=== PATIENT | male | born 1950 | race Caucasian/White ===

== ENCOUNTER → 2023-12-26 | Emergency (ER) | payer OTHER ==
[~2023-12-26] VITALS: Ht 180.3 cm; Wt 79.8 kg
[~2023-12-26] MED LIST: AMLODIPINE-OLM1 EACH PO; KETOROLAC TROMETHAMINE 60 MG VIAL IM STA
[2023-12-26 10:09] LABS: HEMATOCRIT 43.8 % (39.0-48.0); HEMOGLOBIN 14.9 g/dL (13-16.00); MEAN CELL VOLUME 93.9 fL (80.0-100.00); MEAN CORPUSCULAR HEMOGLOBIN 31.9 pg (27.00-32.0); PLATELET COUNT 237 K/uL (150-450); RED BLOOD COUNT 4.66 M/uL (4.00-6.00); RED CELL DISTRIBUTION WIDTH 13.3 % (11.5-14.5)
[2023-12-26 10:12] LABS: PH,URINE 5.5 (5.0-8.0); URINE APPEARANCE Clear; URINE BILIRRUBIN Negative (NEGATIVE); URINE BLOOD Negative; URINE COLOR Yellow; URINE GLUCOSE Negative (NEGATIVE); URINE KETONE Negative (NEGATIVE); URINE LEUKOCYTE Trace; URINE NITRATE Negative; URINE PROTEIN Negative (NEGATIVE); URINE UROBILINOGEN 0.2 E.U./dl
[2023-12-26 10:18] LABS: URINE BACTERIA 11.3 uL (0.0-1933); URINE EPITHELIAL CELLS 1.6 uL (0.0-38.8); URINE WBC 10.9 uL (0.0-23.2)
[2023-12-26 10:32] LABS: URINE RBC 0.7 uL (0.0-20.8)
[2023-12-26 10:57] LABS: CALCIUM 9.4 mg/dL (8.5-10.1); CREATININE SERUM 1.83 mg/dL (0.70-1.30); GFR 36.67; POTASSIUM 4.51 mEq/L (3.5-5.1)
== END | disposition left against medical advice (07) ==
LOC: ER 08:26
PROVIDERS: General Practice
DX: M54.9 Dorsalgia, unspecified (principal); Z87.442 Personal history of urinary calculi; Z88.8 Allergy status to other drugs, medicaments and biological substances; I10 Essential (primary) hypertension
CPT/HCPCS: 36415; 96372; 99282; J1885